=== PATIENT | female | born 1980 | race American Indian/Alaskan Native ===

== ENCOUNTER 2017-10-13 06:03 | Day surgery (SDC) | payer MEDICAID ==
[2017-10-13] MEDS ORDERED: WATER FOR IRRIG STERILE IR ONE (07:18)
[2017-10-13] MEDS ORDERED: HURRICAINE ONE 20% TOPICAL SPRAY MM ×2 (07:19→09:48)
--- NOTE | 2017-10-13 07:50 | Anesthesia Day of Surgery ---
Anesthesia Day of Surgery - Day of Surgery Patient Examined: Yes Patient H&P Reviewed: Yes Patient is NPO: Yes
--- NOTE | 2017-10-13 07:50 | Anesthesia Consultation ---
Anesthesia Consult and Med Hx Date of service: 10/13/17 - Airway Anesthetic Teeth Evaluation: Poor ROM Head & Neck: Adequate Mental/Hyoid Distance: Adequate Mallampati Class: Class I Intubation Access Assessment: Good - Pulmonary Exam CTA: Yes - Cardiac Exam Cardiac Exam: RRR - Pre-Operative Health Status ASA Pre-Surgery Classification: ASA3 - Pulmonary Hx Sleep Apnea: Yes (cpap) - Gastrointestinal Hx Gastroesophageal Reflux Disease: Yes - Other Systems Hx Obesity: Yes
[2017-10-13] MEDS ORDERED: NACL 0.9% 1000 ML 1,000 ML IV SCH (08:00)
--- NOTE | 2017-10-13 08:08 | Discharge Summary ---
Providers - Providers Date of discharge: 10/13/17 Attending physician: ANDREW BOUDREAUX Hospitalization Condition: Good Procedures: egd Hospital course: pt had uneventful egd as part of planning for upcoming bariatric surgery Disposition: DC-01 TO HOME OR SELFCARE Core Measure Documentation - Palliative Care Palliative Care/ Comfort Measures: Not Applicable - Core Measures Any of the following diagnoses?: none Exam - Physical Exam Narrative exam: unchanged from pre-op - Constitutional Vitals: Temp Pulse Resp BP Pulse Ox 98.7 F 84 23 124/70 100 10/13/17 07:58 10/13/17 07:58 10/13/17 07:58 10/13/17 07:58 10/13/17 07:58 Plan Activity: no restrictions Weight Bearing Status: Weight Bear as Tolerated Diet: regular Follow up with: ARMANDO MORENO MD [Other] - 7 Days
--- NOTE | 2017-10-13 08:09 | Operative Report ---
Operative Report Operative Report: OPERATIVE REPORT - EGD DATE 10/13/17 SURGERY: Upper endoscopy. SURGEON: Sameer Jimenez M.D. REGISTERED ART THERAPIST: Anamaria Leung DO PRE OP DX: dyspepsia POST OP DX: hiatal hernia TYPE OF ANESTHESIA: MAC. ESTIMATED BLOOD LOSS: None. COMPLICATIONS: None. SPECIMENS REMOVED: None. FINDINGS: 1. Small hiatal hernia. 2. Otherwise, normal esophagus, stomach and first portion of duodenum. INDICATIONS:INDICATION FOR PROCEDURE: Patient is a 37-year-old female with a long history of morbid obesity. She is planned to have a weight loss procedure and is here for preoperative planning EGD. PROCEDURE DETAILS: After consent was reviewed, patient was taken back to the operating room where patient was placed in the left lateral decubitus position and a bite block was placed in the mouth. After a time-out was called, MAC anesthesia was initiated. I then passed the endoscope into her oropharynx, into her esophagus, visualized the entire esophagus, which was all within normal limits. I then visualized the stomach and the first portion of the duodenum and there were no abnormalities I could clearly visualize. I then retroflexed the scope in the stomach and visualized the hiatus and I could see a small hiatal hernia. I then desufflated the stomach and removed the endoscope. Patient tolerated procedure well and was transferred to recovery room in good and stable condition.
[2017-10-13] MEDS ORDERED: DIPRIVAN 10 MG/ML IV ONE ×2 (09:15)
[2017-10-13 10:29] VITALS: BP 119/68
--- NOTE | 2017-10-14 19:24 | Post Anesthesia Evaluation ---
- Post Anesthesia Evaluation Patient Participated: Yes Airway Patent: Yes Stable Respiratory Function: Yes Nausea/Vomiting: No Temp > 96.8F: Yes Pain Manageable: Yes Adequeate Hydration: Yes Anesthesia Complications: No Block Receding Appropriately: Not Applicable
== END 2017-10-13 06:04 | disposition home or self-care (01) ==
LOC: GIO 06:03
PROVIDERS: ATTEND Surgery
DX: K44.9 Diaphragmatic hernia without obstruction or gangrene (principal); E66.01 Morbid (severe) obesity due to excess calories; K21.9 Gastro-esophageal reflux disease without esophagitis; G47.33 Obstructive sleep apnea (adult) (pediatric); Z88.8 Allergy status to other drugs, medicaments and biological substances; N39.3 Stress incontinence (female) (male)
CPT/HCPCS: 43235; 81025; J2704; J7030